=== PATIENT | female | born 1950 | race Caucasian/White ===

== ENCOUNTER 2020-09-10 17:12 | Inpatient (IN) ==
[2020-09-11] MEDS ORDERED: Acetaminophen 325 MG TABLET PO PRN (19:54)
[2020-09-11] MEDS ORDERED: Ondansetron ODT 4 MG TAB.RAPDIS SL PRN (19:54)
[2020-09-12 04:54] LABS: Basophils # 0.1 K/mcL (0.0-0.2); Basophils % 0.5 %; Eosinophils # 0.3 K/mcL (0.0-0.6); Eosinophils % 2.9 %; Hematocrit 38.8 % (35.3-44.9); Immature Granulocytes % 0.4 % (0-4); Mean Corpuscular HGB Conc 32.7 g/dL (31.6-35.5); Mean Corpuscular Hemoglobin 29.7 pg (28.0-33.3); Mean Corpuscular Volume 90.7 fL (83.0-100.0); Mean Platelet Volume 10.8 fL (9.4-12.4); Monocytes # 0.6 K/mcL (0.0-1.3); Monocytes % 6.5 %; Neutrophils # 6.4 K/mcL (1.6-8.9); Platelet Count 226 K/mcL (140-400); Red Blood Count 4.28 M/mcL (3.82-4.97); Red Cell Distribution Width 13.1 % (11.5-14.5); Segmented Neutrophils % 68.7 %; White Blood Count 9.4 K/mcL (4.3-11.1)
[2020-09-12 04:59] LABS: Hemoglobin 12.7 g/dL (11.5-15.4)
[2020-09-12 05:16] LABS: Alanine Aminotransferase 18 Units/L (7-52); Albumin 3.1 g/dL (3.5-5.7); Albumin/Globulin Ratio 1.1 (1.1-2.2); Alkaline Phosphatase 73 Units/L (34-104); Aspartate Amino Transferase 21 Units/L (13-39); BUN/Creatinine Ratio 32 (6-26); Bilirubin,Total 0.5 mg/dL (0.3-1.0); Blood Urea Nitrogen 22 mg/dL (8-23); Calcium 8.7 mg/dL (8.6-10.3); Carbon Dioxide 27 mEq/L (23-29); Chloride 104 mEq/L (98-107); Globulin 2.9 g/dL (2.4-3.5); Glucose 103 mg/dL (70-105); Magnesium 1.7 mg/dL (1.6-2.6); Osmolality,Calculated 288 (280-300); Potassium 3.9 mEq/L (3.5-5.1); Sodium 137 mEq/L (136-145); eGFR For African Americans > 60 (> 60); eGFR For Non-African Americans > 60 (> 60)
[2020-09-12] MEDS: *HR* Enoxaparin 40 MG/0.4 ML SYRINGE SQ SCH (05:40)
[2020-09-12] MEDS: levETIRAcetam 250 MG TABLET PO SCH ×2 (05:40→17:12)
[2020-09-12] MEDS: lisinopriL 5 MG TABLET PO SCH (08:52)
[2020-09-12] MEDS: Aspirin 81 MG TAB.CHEW PO SCH (08:52)
[2020-09-13] MEDS: *HR* Enoxaparin 40 MG/0.4 ML SYRINGE SQ SCH (05:32)
[2020-09-13] MEDS: levETIRAcetam 250 MG TABLET PO SCH ×2 (05:33→17:39)
[2020-09-13] MEDS: Aspirin 81 MG TAB.CHEW PO SCH (08:06)
[2020-09-13] MEDS: lisinopriL 5 MG TABLET PO SCH (08:06)
[2020-09-13] MEDS: Diphenoxylate/Atropine 1 TAB TABLET PO PRN (15:27)
[2020-09-14] MEDS: levETIRAcetam 250 MG TABLET PO SCH ×2 (06:17→16:29)
[2020-09-14] MEDS: *HR* Enoxaparin 40 MG/0.4 ML SYRINGE SQ SCH (06:17)
[2020-09-14] MEDS: lisinopriL 5 MG TABLET PO SCH (07:57)
[2020-09-14] MEDS: Aspirin 81 MG TAB.CHEW PO SCH (07:57)
[2020-09-14] MEDS: Diphenoxylate/Atropine 1 TAB TABLET PO PRN (16:30)
[2020-09-15] MEDS: levETIRAcetam 250 MG TABLET PO SCH ×2 (05:55→17:09)
[2020-09-15] MEDS: *HR* Enoxaparin 40 MG/0.4 ML SYRINGE SQ SCH (05:56)
[2020-09-15 06:10] LABS: Hematocrit 36.4 % (35.3-44.9); Hemoglobin 11.9 g/dL (11.5-15.4); Mean Corpuscular HGB Conc 32.7 g/dL (31.6-35.5); Mean Corpuscular Hemoglobin 29.5 pg (28.0-33.3); Mean Corpuscular Volume 90.3 fL (83.0-100.0); Mean Platelet Volume 11.1 fL (9.4-12.4); Platelet Count 234 K/mcL (140-400); Red Blood Count 4.03 M/mcL (3.82-4.97); Red Cell Distribution Width 12.8 % (11.5-14.5); White Blood Count 8.5 K/mcL (4.3-11.1)
[2020-09-15 06:41] LABS: Alanine Aminotransferase 29 Units/L (7-52); Albumin/Globulin Ratio 1.1 (1.1-2.2); Alkaline Phosphatase 74 Units/L (34-104); Aspartate Amino Transferase 20 Units/L (13-39); BUN/Creatinine Ratio 24 (6-26); Bilirubin,Total 0.5 mg/dL (0.3-1.0); Blood Urea Nitrogen 15 mg/dL (8-23); Calcium 8.4 mg/dL (8.6-10.3); Carbon Dioxide 28 mEq/L (23-29); Chloride 105 mEq/L (98-107); Globulin 2.8 g/dL (2.4-3.5); Glucose 100 mg/dL (70-105); Magnesium 1.8 mg/dL (1.6-2.6); Osmolality,Calculated 289 (280-300); Potassium 3.9 mEq/L (3.5-5.1); Sodium 139 mEq/L (136-145); Total Protein 5.8 g/dL (6.4-8.9); eGFR For African Americans > 60 (> 60); eGFR For Non-African Americans > 60 (> 60)
[2020-09-15] MEDS: Aspirin 81 MG TAB.CHEW PO SCH (08:33)
[2020-09-15] MEDS: lisinopriL 5 MG TABLET PO SCH (08:34)
[2020-09-16] MEDS: *HR* Enoxaparin 40 MG/0.4 ML SYRINGE SQ SCH (06:27)
[2020-09-16] MEDS: levETIRAcetam 250 MG TABLET PO SCH ×2 (06:27→16:41)
[2020-09-16] MEDS: Aspirin 81 MG TAB.CHEW PO SCH (08:18)
[2020-09-16] MEDS: lisinopriL 5 MG TABLET PO SCH (08:18)
[2020-09-17] MEDS: *HR* Enoxaparin 40 MG/0.4 ML SYRINGE SQ SCH (05:16)
[2020-09-17] MEDS: Aspirin 81 MG TAB.CHEW PO SCH (08:06)
[2020-09-17] MEDS: lisinopriL 5 MG TABLET PO SCH (08:06)
[2020-09-17] MEDS: levETIRAcetam 250 MG TABLET PO SCH ×2 (12:06→19:48)
[2020-09-18] MEDS: levETIRAcetam 250 MG TABLET PO SCH ×2 (05:08→17:30)
[2020-09-18] MEDS: *HR* Enoxaparin 40 MG/0.4 ML SYRINGE SQ SCH (05:08)
[2020-09-18] MEDS: lisinopriL 5 MG TABLET PO SCH (08:25)
[2020-09-18] MEDS: Aspirin 81 MG TAB.CHEW PO SCH (08:25)
[2020-09-19] MEDS: levETIRAcetam 250 MG TABLET PO SCH ×2 (04:46→17:24)
[2020-09-19] MEDS: *HR* Enoxaparin 40 MG/0.4 ML SYRINGE SQ SCH (04:46)
[2020-09-19] MEDS: lisinopriL 5 MG TABLET PO SCH (07:55)
[2020-09-19] MEDS: Aspirin 81 MG TAB.CHEW PO SCH (07:55)
[2020-09-20] MEDS: levETIRAcetam 250 MG TABLET PO SCH ×2 (05:50→17:40)
[2020-09-20] MEDS: *HR* Enoxaparin 40 MG/0.4 ML SYRINGE SQ SCH (05:50)
[2020-09-20] MEDS: lisinopriL 5 MG TABLET PO SCH (07:56)
[2020-09-20] MEDS: Aspirin 81 MG TAB.CHEW PO SCH (07:56)
[2020-09-21] MEDS: levETIRAcetam 250 MG TABLET PO SCH (05:08)
[2020-09-21] MEDS: *HR* Enoxaparin 40 MG/0.4 ML SYRINGE SQ SCH (05:09)
[2020-09-21] MEDS: Aspirin 81 MG TAB.CHEW PO SCH (08:34)
[2020-09-21] MEDS: lisinopriL 5 MG TABLET PO SCH (08:35)
[2020-09-21 09:37] VITALS: BP 141/85
== END 2020-09-21 13:30 | disposition home health service (06) | DRG 57 ==
LOC: INPGRE 09-11 18:49
PROVIDERS: ADMIT Family Medicine; ATTEND Family Medicine